=== PATIENT | male | born 1985 | race Caucasian/White ===

== ENCOUNTER 2022-10-23 07:47 | Day surgery (SDC) | payer OTHER ==
[~2022-10-23] VITALS: Ht 172.7 cm; Wt 102.1 kg
[2022-10-23] MEDS ORDERED: fentaNYL citrate 0.05 MG/ML VIAL ONE (08:25)
[2022-10-23] MEDS ORDERED: LIDOCAINE 2% 100 MG/5 ML UJET TP ONE ×2 (08:25→09:05)
[2022-10-23] MEDS ORDERED: fentaNYL citrate 0.05 MG/ML VIAL IVP ONE (09:05)
== END 2022-10-23 09:50 | disposition home or self-care (01) ==
LOC: MOR 07:47 → MMU 07:49 → MOR 09:50
PROVIDERS: ATTEND Internal Medicine Gastroenterology
DX: K62.5 Hemorrhage of anus and rectum (principal); K64.9 Unspecified hemorrhoids; F41.9 Anxiety disorder, unspecified; Z90.49 Acquired absence of other specified parts of digestive tract
CPT/HCPCS: 45378; J3010